=== PATIENT | male | born 1970 | race Caucasian/White ===

== ENCOUNTER 2024-09-24 17:52 | Emergency (ER) | payer OTHER, SELFPAY ==
--- NOTE | ~2024-09-24 | XR_ITS ---
CLINICAL HISTORY: ABD pain, constipation Abdomen X-ray, 1 View COMPARISON: None FINDINGS: Nonobstructive bowel gas pattern. Moderate stool in the colon. No visible free air. No acute fracture. IMPRESSION: No acute findings. This document has been electronically signed by: Cesar Madrid MD on 09/24/2024 21:16:46
[2024-09-24 18:15] VITALS: BP 120/84; PULSE 75; RESP 20; TEMP 37; O2SAT 95; BMI 37.9
--- NOTE | 2024-09-24 18:19 | ED.GENADULT ---
HPI - General Adult General Chief complaint: Abdominal Pain Stated complaint: ?Colon blockage Time Seen by Provider: 09/24/24 18:53 Source: patient Mode of arrival: ambulatory Limitations: no limitations History of Present Illness ED Provider: HPI narrative: Patient's history of constipation and plan to have colonoscopy done 2 days ago unable to have colonoscopy as patient was still constipated now comes as he feels the internal hemorrhoids coming out whenever he would like to push for bowel movement feel bloated and constipated Related Data Previous Rx's ?Medication ?Instructions ?Recorded hydrocortisone 1 %-pramoxine 1 % 1 appl LA BID PRN hemorrhoids #10 09/24/24 rectal foam (Proctofoam HC) grams Allergies Allergy/AdvReac Type Severity Reaction Status Date / Time No Known Allergies Allergy Unverified 09/24/24 18:20 Review of Systems Review of Systems: Yes all other systems are reviewed and are negative [facility] Social History Social History Advance Directives: No Advance Directives Information Provided: No Physical Exam ED Vital Signs: Vital Signs - 24 hr 09/24/24 18:15 Temperature 98.6 F Pulse Rate 75 Respiratory Rate 20 Blood Pressure 120/84 Pulse Oximetry 95 Oxygen Delivery Method Room Air BMI result Body Mass Index 37.9 Appearance: Alert. Oriented X3. No acute distress. Eyes: PERRLA, No Nystagmus ENT: Pharynx normal. Oral Mucosa moist Neck: Normal inspection. Neck supple. CVS: Normal heart rate and rhythm. Pulses normal. Respiratory: No respiratory distress. Equal air entry bilateral, no wheezing/rales/rhonchi Abdomen: Soft and nontender. Bowel sounds are present, no mass palpable, no CVA tenderness rectal: Internal hemorrhoids no active bleeding no stool palpable Skin: Skin warm and dry. Normal skin color. Normal skin turgor. Extremities: No lower extremity edema. No calf tenderness Neuro: Oriented X 3. No motor deficit. No sensory deficit.No cerebellar signs , cranial nerves II-XII intact Course Course Course Narrative: This is an RME performed by Janessa Johnson CNP: Additional HPI, ROS, PE not included below will be deferred to primary provider. Patient is a 54-year-old male presents emergency department for evaluation. He reports onset today of left lower quadrant sharp abdominal pain. He states that is 3 days ago he attempted to do a bowel cleanse for colonoscopy come to not have sufficient bowel movement therefore colonoscopy was not ensued. Attempted 2nd bowel cleanse yesterday. Reports that he had a very small movement but not sufficient. He endorses a history of a colon surgery many years ago and believes that there is a suture restriction that causes difficulty in him being able to move his bowels normally. Due to his chronic constipation this is why the colonoscopy was being ordered. He endorses feeling a large bulge from the rectum that he is able to manually reduce with a warm cloth, has had some bright red blood. Plan: Serum labs, KUB Medical Decision Making Medical Decision Making [facility] Narrative: Patient has CKD in the past his creatinine of 1.6 with same today x-ray negative for obstruction showed constipation patient advised to continue MiraLax and use Proctofoam Lab Data [facility] Lab Attestation statement: I reviewed the patient's lab results. 09/24/24 18:28 09/24/24 18:28 Labs: Lab Results 09/24/24 Range/Units 18:28 WBC 11.1 H (4.8-10.8) X10*3/uL RBC 4.40 L (4.60-5.80) X10*6/uL Hgb 12.1 L (14.0-18.0) g/dl Hct 37.3 L (42.0-52.0) % MCV 84.8 (80.0-98.0) fL MCH 27.5 (27.0-33.0) pg MCHC 32.4 (31.0-36.0) g/dl RDW 15.9 (11.0-16.0) % Plt Count 563 H (160-400) X10*3/uL MPV 9.0 L (9.4-12.4) fL Immature Gran % (Auto) 1.1 H (0.0-0.4) % Neut % (Auto) 60.2 (45-73) % Lymph % (Auto) 26.5 (20-40) % [place] % (Auto) 6.8 (2-11) % Eos % (Auto) 4.4 H (0-4) % Baso % (Auto) 1.0 (0-2) % Lymph # (Auto) 3.0 (1.2-4.9) X10*3/uL [place] # (Auto) 0.8 (0.1-1.2) X10*3/uL Eos # (Auto) 0.5 H (0.0-0.4) X10*3/uL Baso # (Auto) 0.1 (0.0-0.2) X10*3/uL Abs Immat Gran (auto) 0.12 H (0.00-0.03) X10*3/uL Absolute Neuts (auto) 6.7 (2.0-8.3) x10*3/uL Absolute Nucleated RBC 0.000 (0.0-0.012) X10*3/uL Nucleated RBC % (auto) 0.0 (0.0-0.2) /100WBC Sodium 140 (135-145) mmol/L Potassium 4.3 (3.3-5.1) mmol/L Chloride 106 (96-108) mmol/L Carbon Dioxide 23 (22-29) mmol/L Anion Gap 15 (12-20) BUN 18 H (9-16) mg/dL Creatinine 1.60 H (0.5-1.4) mg/dL Estim Creat Clear Calc 66.8 Estimated GFR 45 Random Glucose 81 (60-115) mg/dL Calcium 9.5 (8.4-10.2) mg/dL Total Bilirubin 0.3 (0.0-1.0) mg/dL AST 21 (5-37) U/L ALT 25 (0-40) U/L Alkaline Phosphatase 97 (39-117) U/L Total Protein 8.7 H (6.5-8.0) g/dL Albumin 3.8 (3.5-5.0) g/dL Independent Interpretation I performed an independent interpretation of an: Plain X-Ray Discharge Plan Discharge Clinical Impression: Internal hemorrhoid Patient Disposition: Home, Self-Care Instructions: Hemorrhoids (ED) Additional Instructions: Drink plenty of fluids Continue MiraLax Would straining/constipation Follow up with GI as scheduled Prescriptions: New Proctofoam HC 1-1 % foam 1 appl LA BID PRN (Reason: hemorrhoids) Qty: 10 0RF Print Language: Maltese
[2024-09-24 18:32] LABS: MANUAL DIFF FLAG NO
[2024-09-24 18:40] LABS: Basophils Absolute Auto 0.1 X10*3/uL (0.0-0.2); Eosinophils Absolute Auto 0.5 X10*3/uL (0.0-0.4); Eosinophils Percent Auto 4.4 % (0-4); Hematocrit 37.3 % (42.0-52.0); Hemoglobin 12.1 g/dl (14.0-18.0); Imm Gran Abs Auto 0.12 X10*3/uL (0.00-0.03); Imm Gran Pct Auto 1.1 % (0.0-0.4); Lymphocytes Percent Auto 26.5 % (20-40); Mean Corpuscular HGB Conc 32.4 g/dl (31.0-36.0); Mean Corpuscular Hemoglobin 27.5 pg (27.0-33.0); Mean Corpuscular Volume 84.8 fL (80.0-98.0); Monocytes Absolute Auto 0.8 X10*3/uL (0.1-1.2); Monocytes Percent Auto 6.8 % (2-11); Neutrophils Absolute Auto 6.7 x10*3/uL (2.0-8.3); Neutrophils Percent Auto 60.2 % (45-73); Platelet Count 563 X10*3/uL (160-400); Red Cell Distribution Width 15.9 % (11.0-16.0); White Blood Count 11.1 X10*3/uL (4.8-10.8)
[2024-09-24 18:50] LABS: Alanine Aminotransferase 25 U/L (0-40); Albumin Level 3.8 g/dL (3.5-5.0); Alkaline Phosphatase 97 U/L (39-117); Anion Gap 15 (12-20); Aspartate Amino Transferase 21 U/L (5-37); Bilirubin Total 0.3 mg/dL (0.0-1.0); Blood Urea Nitrogen 18 mg/dL (9-16); Calcium 9.5 mg/dL (8.4-10.2); Carbon Dioxide 23 mmol/L (22-29); Chloride 106 mmol/L (96-108); Creatinine Clr Calc Pharmacy 66.8; Estimated Glomerular Filt Rate 45; Glucose Random 81 mg/dL (60-115); Potassium 4.3 mmol/L (3.3-5.1); Sodium 140 mmol/L (135-145); Total Protein 8.7 g/dL (6.5-8.0)
[2024-09-24 22:42] VITALS: BP 120/84; PULSE 75; RESP 20; TEMP 37; O2SAT 95
== END 2024-09-24 22:43 | disposition home or self-care (01) ==
PROVIDERS: Nurse Practitioner Family; Emergency Provider Internal Medicine
DX: K64.8 Other hemorrhoids (principal); R10.32 Left lower quadrant pain; K62.5 Hemorrhage of anus and rectum
CPT/HCPCS: 36415; 74018; 80053; 85025; 99282; 99283

== ENCOUNTER → 2024-09-24 18:21 | Outpatient (BNV) | payer OTHER, SELFPAY | PROVIDERS: Visit Provider Radiology Diagnostic Radiology | DX: K59.00 Constipation, unspecified (principal); R10.9 Unspecified abdominal pain | CPT/HCPCS: 74018 ==